=== PATIENT | male | born 1975 | race Caucasian/White ===

== ENCOUNTER 2018-10-06 15:05 | Emergency (ER) | payer OTHER ==
[~2018-10-06] VITALS: Ht 177.8 cm; Wt 104.5 kg
[2018-10-06] MEDS ORDERED: KETOROLAC 30 MG/ML VIAL (J1885) As Ordered ONE (15:30)
[2018-10-06] MEDS ORDERED: KETOROLAC 60 MG/2 ML VIAL (J1885) IM ONE (15:30)
--- NOTE | 2018-10-06 15:48 | REP ---
LEFT ANKLE, FOUR VIEWS: HISTORY: Trauma. There is no acute fracture or dislocation. The joint space is normal in appearance. An osteophyte is present on the posterior calcaneus. Soft tissue swelling is present. IMPRESSION: There is no acute fracture or dislocation. Electronically Signed by Jose L Wheeler MD 10/06/2018 03:49 P
[2018-10-06 16:25] VITALS: BP 132/70
== END 2018-10-06 16:41 | disposition home or self-care (01) ==
LOC: M ED 15:05
DX: S93.402A Sprain of unspecified ligament of left ankle, initial encounter (principal); W11.XXXA Fall on and from ladder, initial encounter; Y92.89 Other specified places as the place of occurrence of the external cause; Y99.0 Civilian activity done for income or pay
CPT/HCPCS: 73610; 96372; 99284; J1885